=== PATIENT | male | born 1960 | race African-American/Black ===

== ENCOUNTER 2024-08-26 15:11 | Inpatient (IN) | payer OTHER ==
[2024-08-26 15:42] VITALS: BMI 19.0
[2024-08-26] MEDS ORDERED: IBUPROFEN 400 MG TABLET (FP) PO PRN (17:57)
[2024-08-26] MEDS ORDERED: MAGNESIUM HYDROX 2400MG/30ML ORAL SUSPENSION 30 ML CUP PO PRN (17:57)
[2024-08-26] MEDS ORDERED: DICYCLOMINE HCL 10 MG CAPSULE PO PRN (17:57)
[2024-08-26] MEDS ORDERED: ACETAMINOPHEN 325 MG TABLET (FP) PO PRN (17:57)
[2024-08-26] MEDS ORDERED: MAG HYDROX/AL HYDROX/SIMETH 30 ML UNIT-DOSE CUP PO PRN (17:57)
[2024-08-26] MEDS ORDERED: BENZONATATE 200 MG CAPSULE PO PRN (17:57)
[2024-08-26] MEDS ORDERED: ONDANSETRON *ODT* 4 MG TABLET SL PRN (17:57)
[2024-08-26] MEDS ORDERED: LOPERAMIDE HCL 2 MG CAPSULE PO PRN (17:57)
[2024-08-26] MEDS ORDERED: BISMUTH SUBSALICYLATE 524 MG/30 ML PO PRN (17:57)
[2024-08-26] MEDS ORDERED: POLYETHYLENE GLYCOL (HEALTHYLAX) 3350 17 GM PACKET PO PRN (17:57)
[2024-08-26] MEDS ORDERED: BENZOCAINE/MENTHOL (CHLORASEPTIC ) LOZENGE MM PRN (17:57)
[2024-08-26] MEDS ORDERED: guaiFENesin 600 MG TABLET.ER (FP) PO PRN (17:57)
[2024-08-26] MEDS ORDERED: NALOXONE (NARCAN) HCL 4 MG/0.1 ML SPRAY NS PRN (17:57)
[2024-08-26] MEDS ORDERED: IBUPROFEN 600 MG TABLET (FP) PO PRN (17:57)
[2024-08-26] MEDS ORDERED: methaDONE HCL 10 MG TABLET (FOR DETOX USE ONLY) ONE (18:17)
[2024-08-26] MEDS: methaDONE HCL 10 MG TABLET (FOR DETOX USE ONLY) PO ONE (18:20)
[2024-08-26] MEDS ORDERED: cloNIDine HCL 0.1 MG TABLET ONE (18:44)
[2024-08-26] MEDS: cloNIDine HCL 0.1 MG TABLET PO PRN (18:46)
[2024-08-26] MEDS: MELATONIN 5 MG TABLETS PO SCH (22:10)
[2024-08-26] MEDS: hydrOXYzine PAMOATE 25 MG CAPSULE (FP) PO PRN (22:10)
[2024-08-26] MEDS: THIAMINE 100 MG TABLET PO SCH (22:10)
[2024-08-26] MEDS: METHOCARBAMOL 500 MG TABLET PO PRN (22:10)
[2024-08-27] MEDS: PRENATAL VITAMINS W/ FOLIC ACID TABLET (FP) PO SCH (09:37)
[2024-08-27 15:13] LABS: HEMATOCRIT 35.1 % (35.4-49); HEMOGLOBIN 11.7 GM/dL (11.7-16.9); MCH 28.9 pg (25.7-33.7); MCHC 33.2 g/dl (32.0-35.9); MEAN PLT VOLUME 9.1 fl (7.5-11.1); PLATELET COUNT 197 10^3/uL (134-434); RBC 4.03 M/mm3 (4.00-5.60); RDW 14.1 % (11.9-15.9); WHITE BLOOD COUNT 5.3 K/mm3 (4.0-10.0)
[2024-08-27 16:23] LABS: CHLORIDE 112 mmol/L (98-107); POTASSIUM 4.3 mmol/L (3.5-5.1); SODIUM 144 mmol/L (136-145)
[2024-08-27 16:27] LABS: ALBUMIN 3.3 g/dl (3.4-5.0)
[2024-08-27 16:28] LABS: ANION GAP 2 mmol/L (4-13); BLOOD UREA NITROGEN 18.4 mg/dL (7-18); CALCIUM 9.2 mg/dL (8.5-10.1); CO2 31 mmol/L (21-32)
[2024-08-27 16:29] LABS: GLUCOSE,RANDOM 57 mg/dL (74-106)
[2024-08-27 16:31] LABS: CREATININE 1.6 mg/dL (0.55-1.3); SGOT/AST 17 U/L (15-37); SGPT/ALT 17 U/L (13-61)
[2024-08-27 16:33] LABS: BILIRUBIN,TOTAL 0.2 mg/dL (0.2-1); TOT PROT 6.4 g/dl (6.4-8.2)
[2024-08-27 16:34] LABS: ALK PHOS 63 U/L (45-117)
[2024-08-28] MEDS: methaDONE HCL 10 MG TABLET (FOR DETOX USE ONLY) PO ONE (09:22)
[2024-08-28] MEDS ORDERED: NICOTINE POLACRILEX 2 MG GUM BUC PRN (18:07)
[2024-08-29 09:42] VITALS: BP 147/74; PULSE 57; RESP 18; TEMP 97.5
[2024-08-29] MEDS: NALOXONE (NYS OPIOID OVERDOSE PROGRAM) 4 MG/0.1 ML SPRAY NS PRN (10:12)
[2024-08-29 12:31] LABS: BASO % 0.6 % (0-2.0); EOS % 1.2 % (0-4.5); HEMATOCRIT 38.9 % (35.4-49); HEMOGLOBIN 12.4 GM/dL (11.7-16.9); LYMPH % 28.6 % (8-40); MCH 28.3 pg (25.7-33.7); MCHC 31.9 g/dl (32.0-35.9); MEAN CELL VOLUME 88.7 fl (80-96); MEAN PLT VOLUME 9.5 fl (7.5-11.1); MONO % 7.7 % (3.8-10.2); NEUT % 61.9 % (42.8-82.8); PLATELET COUNT 218 10^3/uL (134-434); RBC 4.39 M/mm3 (4.00-5.60); RDW 14.3 % (11.9-15.9); WHITE BLOOD COUNT 6.9 K/mm3 (4.0-10.0)
[2024-08-29 13:35] LABS: POTASSIUM 4.3 mmol/L (3.5-5.1)
[2024-08-29 13:44] LABS: ALBUMIN 3.6 g/dl (3.4-5.0); BILIRUBIN,TOTAL 0.5 mg/dL (0.2-1); BLOOD UREA NITROGEN 15.6 mg/dL (7-18); CALCIUM 9.5 mg/dL (8.5-10.1); TOT PROT 7.2 g/dl (6.4-8.2)
[2024-08-29 13:47] LABS: CREATININE 1.6 mg/dL (0.55-1.3)
[2024-08-29] MEDS ORDERED: QUEtiapine FUMARATE 50 MG TABLET PO SCH (22:00)
[2024-08-30] MEDS ORDERED: methaDONE HCL 10 MG TABLET (FOR DETOX USE ONLY) PO ONE (10:00)
== END 2024-08-29 10:37 | disposition home or self-care (01) | DRG 773 ==
LOC: YASAS 15:11 → Y3N 18:31
PROVIDERS: ADMIT Allergy & Immunology; ATTEND Surgery
PROC: HZ2ZZZZ Detoxification Services for Substance Abuse Treatment (ICD-10-PCS; principal; 2024-08-26)
DX: F11.23 Opioid dependence with withdrawal (principal); F14.20 Cocaine dependence, uncomplicated; F17.210 Nicotine dependence, cigarettes, uncomplicated; F19.282 Other psychoactive substance dependence with psychoactive substance-induced sleep disorder; F41.9 Anxiety disorder, unspecified; I10 Essential (primary) hypertension; R79.89 Other specified abnormal findings of blood chemistry
CPT/HCPCS: 36415; 80053; 80305; 80307; 85025; 85027; 86780; 93005; 93010